=== PATIENT | male | born 1975 | race Caucasian/White ===

== ENCOUNTER 2017-01-02 17:28 | Emergency (ER) | payer OTHER ==
[~2017-01-02] VITALS: Ht 165.1 cm; Wt 59.6 kg
[2017-01-02] MEDS ORDERED: DIPHENHYDRAMINE 25 MG CAPSULE ONE (18:27)
[2017-01-02] MEDS ORDERED: EPINEPHRINE 1 MG/ML, 1ML ONE (18:28)
[2017-01-02] MEDS ORDERED: FAMOTIDINE 20 MG TABLET ONE (18:28)
[2017-01-02] MEDS ORDERED: DIPHENHYDRAMINE 25 MG CAPSULE PO ONE (18:30)
[2017-01-02] MEDS ORDERED: EPINEPHRINE 1 MG/ML, 1ML SQ ONE (18:30)
[2017-01-02] MEDS ORDERED: FAMOTIDINE 20 MG TABLET PO ONE (18:30)
[2017-01-02] MEDS ORDERED: ACETAMINOPHEN 325 MG TABLET ONE (18:40)
[2017-01-02] MEDS ORDERED: ACETAMINOPHEN 325 MG TABLET PO ONE (19:00)
[2017-01-02 20:06] VITALS: BP 131/70
== END 2017-01-02 20:10 | disposition home or self-care (01) ==
LOC: ED 20:04
DX: L50.9 Urticaria, unspecified (principal)
CPT/HCPCS: 96372; 99284; J0171; J7512; Q0163